=== PATIENT | male | born 1935 | race Caucasian/White ===

== ENCOUNTER 2016-09-10 16:51 | Inpatient (IN) ==
--- NOTE | 2016-09-10 17:25 | Emergency Department Note ---
Disposition Clinical Impression: GI bleed Qualifiers: GI bleed type/associated pathology: unspecified gastrointestinal hemorrhage type Qualified Code(s): K92.2 - Gastrointestinal hemorrhage, unspecified Disposition: Admitted As Inpatient GI Bleed HPI - General Chief complaint: ED GI Bleed Stated complaint: GI BLEED Time Seen by Provider: 09/10/16 17:07 Source: patient, EMS Limitations: age - History of Present Illness HPI Narrative: Mr. Marley, an 81yo male, presents from the [place] via [facility] with CC: GI bleed. He describes overt red blood in the bowl and toilet tissue. Onset 3 days ago and progressively worsening. Stool consistency described as, "apple pie." Painless bowel movements. Had a colonoscopy Aug and has had lower aching abdominal pain since. Denies dizziness, unusual weakness, dyspnea, chest pain, palpitations, numbness/ tingling. Denies history of hemorrhoids. Anticoagulated on ASA, clopidogrel bisulfate. Rate limited by atenolol, digoxin. PMH: TIA, CHF, cardiac pacemaker, CAD, chronic A. Fib, DM II, HTN, hx benign neoplsam of colon. - Related Data Home Medications Medication Instructions Recorded Confirmed Aspirin [Adult Low Dose Aspirin EC] 162 mg PO DAILY 10/30/15 10/30/15 Atenolol [Tenormin] 50 mg PO BID 10/30/15 10/30/15 Atorvastatin [Lipitor] 80 mg PO QPM 10/30/15 10/30/15 Clopidogrel [Plavix] 75 mg PO DAILY 10/30/15 10/30/15 Digoxin [Lanoxin] 0.25 mg PO DAILY 10/30/15 10/30/15 Ergocalciferol (VITAMIN D2) 50,000 unit PO QWEEK 10/30/15 10/30/15 [Vitamin D2 (50,000 UNIT)] Ferrous Sulfate 325 mg PO BID 10/30/15 10/30/15 Furosemide [Lasix] 20 mg PO Q48H 10/30/15 10/30/15 GuaiFENesin Liq [Robitussin Liq] 5 ml PO Q6HR PRN 10/30/15 10/30/15 Insulin NPH Hum/Reg Insulin Hm 74 unit SQ BID 10/30/15 10/30/15 [Novolin 70-30 100 Unit/ml Vial] Isosorbide MONOnitrate (24 HR) 15 mg PO DAILY 10/30/15 10/30/15 [Imdur] Lisinopril [Zestril] 10 mg PO DAILY 10/30/15 10/30/15 Metformin HCl [Glucophage] 1,000 mg PO BID 10/30/15 10/30/15 Metformin [Glucophage] 500 mg PO DAILY 10/30/15 10/30/15 Naproxen [EC-Naprosyn] 375 mg PO BID PRN 10/30/15 10/30/15 Primidone [Mysoline] 100 mg PO HS 10/30/15 10/30/15 Ranitidine HCl [Zantac] 150 mg PO BID 10/30/15 10/30/15 Terazosin HCl 2 mg PO HS 10/30/15 10/30/15 Allergies Allergy/AdvReac Type Severity Reaction Status Date / Time No Known Allergies Allergy Verified 10/30/15 17:26 All systems ED: reviewed and negative except as stated. Constitutional: Denies: fever, chills, weakness Cardiovascular: Denies: chest pain, palpitations, dyspnea on exertion, orthopnea Respiratory: Denies: cough, dyspnea, wheezes Gastrointestinal: Reports: abdominal pain, diarrhea, hematochezia. Denies: nausea, vomiting, constipation, hematemesis, melena Genitourinary: Denies: urgency, dysuria Musculoskeletal: Denies: back pain, neck pain Neurological: Denies: headache, weakness, numbness, paresthesias, confusion, vertigo Hematological/Lymphatic: Reports: easy bleeding, easy bruising Past Medical History - Past Medical History Medical history: Reports: arthritis, atrial fibrillation, cardiomyopathy, CHF, COPD, coronary artery disease, diabetes, GERD, hyperlipidemia, hypertension, myocardial infarction, osteoporosis, renal disease, TIA, other Surgical history: Reports: carotid endarterectomy, pacemaker/AICD, other Psychiatric history: Reports: anxiety - Social History Smoking Status: Former smoker Smokeless Tobacco Status: Yes Alcohol use: Reports: none Drug use: Reports: none Physical Exam General: Patient is alert, oriented, and in no acute distress. HEENT: No facial asymmetry. Head is normocephalic and atraumatic. Trachea midline. Mild conjunctival pallor. Cardiovascular: Heart irregular rate and rhythm without clicks, rubs, gallops, or murmurs. Respiratory: Symmetric chest rise with good respiratory effort. Bilateral breath sounds are clear without wheezing, crackles, or rhonchi. Abdomen: Bowel sounds present normoactive x-4 quadrants. Abdomen is soft, nondistended. Tender in bilateral lower quadrants. : No external rectal evidence of trauma or hemorrhoids. Neuro: Cranial nerves II through XII grossly intact. Psych: Patient's affect is appropriate for situation. - General Limitations: age General appearance: alert, in no apparent distress Course Course Narrative: Labs per [facility]: WBC 6.5 Hgb 10.4 HCT 33.4 BUN 36 Cr 1.18 eGFR >60 PTT 24.6 INR 1.4 AST 21 ALT 21 2v chest: Lt basilar consolidation suspicious for pneumonia, small left pleural effusion. There is overt birhg tred blood in the patient's stool, in the water, and on the toilet tissue in the commode in his ED room. Patient is clinically stable; he is not tachycardic, his BP is hypertensive, he is asymptomatic, his Hb/HCT from the [place] are not immediately concerning. Will CT abd/pelvis with IV no oral. Will not wait on [facility] labs; will use [place] renal fcn for CT. Pertinent labs from [place] above. Patient had another bloody BM. Will repeat CBC and type & screen. 18:45 CT abd/pelvis w/IV no oral contrast indicates diverticulosis without diverticulitis. Evidence of fat stranding with mild gallbladder dilation. Radiologist appropriately recommends rule-out acalculis cholecystitis. Emergencly, will continue to focus on overt bright red blood per rectum. Patient has no RUQ pain on abdominal exam. Spoke with Dr. Gallegos who accepts the patient. Vital Signs Temperature 98.2 F 09/10/16 16:53 Pulse Rate 78 09/10/16 16:53 Respiratory Rate 20 09/10/16 16:53 Blood Pressure 193/126 09/10/16 16:53 O2 Sat by Pulse Oximetry 93 L 09/10/16 16:53 Temperature 98.2 F 09/10/16 16:53 Pulse Rate 77 09/10/16 19:04 Respiratory Rate 20 09/10/16 19:12 Blood Pressure 178/89 09/10/16 19:12 O2 Sat by Pulse Oximetry 95 09/10/16 19:04 Oxygen Delivery Oxygen Delivery Room Air GI Bleed - Medical Records Medical records reviewed: Yes I reviewed the patient's medical records. - Lab Data Lab results reviewed: Yes I reviewed the patient's lab results. - Radiology Data Radiology results reviewed: Yes I reviewed the patient's radiology results. - EKG Data EKG attestation: Yes I reviewed and interpreted this EKG. EKG results narrative: EKD dated 10 Sep 2016 at 17:15 interpreted as A. Fib with rate of 79. IVCD. Non-specific STT changes. Compared to previous dated 10/30/15 showing A. Flutter. Unable to assess ischemic changes in comparison.
--- NOTE | 2016-09-10 19:14 | Emergency Department Note ---
Disposition Clinical Impression: GI bleed Disposition: Admitted As Inpatient General Adult [facility] - General Chief complaint: ED GI Bleed Stated complaint: GI BLEED Time Seen by Provider: 09/10/16 17:07 Source: patient, EMS Limitations: age - History of Present Illness Pain Scale: 0 - Related Data Home Medications Medication Instructions Recorded Confirmed Aspirin [Adult Low Dose Aspirin EC] 162 mg PO DAILY 10/30/15 09/10/16 Atenolol [Tenormin] 50 mg PO BID 10/30/15 09/10/16 Atorvastatin [Lipitor] 80 mg PO QPM 10/30/15 09/10/16 Clopidogrel [Plavix] 75 mg PO DAILY 10/30/15 09/10/16 Digoxin [Lanoxin] 0.25 mg PO DAILY 10/30/15 09/10/16 Furosemide [Lasix] 20 mg PO Q48H 10/30/15 09/10/16 Isosorbide MONOnitrate (24 HR) 15 mg PO DAILY 10/30/15 09/10/16 [Imdur] Lisinopril [Zestril] 10 mg PO DAILY 10/30/15 09/10/16 Metformin [Glucophage] 1,000 mg PO BID 10/30/15 09/10/16 Primidone [Mysoline] 100 mg PO HS 10/30/15 09/10/16 Terazosin HCl 6 mg PO HS 10/30/15 09/10/16 Ferrous Gluconate 324 mg PO BID 09/10/16 09/10/16 Insulin NPH, HUMAN [HumuLIN N] 74 unit SQ BID 09/10/16 09/10/16 Allergies Allergy/AdvReac Type Severity Reaction Status Date / Time No Known Allergies Allergy Verified 10/30/15 17:26 Constitutional: Denies: fever, chills, weakness Cardiovascular: Denies: chest pain, palpitations, dyspnea on exertion, orthopnea Respiratory: Denies: cough, dyspnea, wheezes Gastrointestinal: Reports: abdominal pain, diarrhea, hematochezia. Denies: nausea, vomiting, constipation, hematemesis, melena Genitourinary: Denies: urgency, dysuria Musculoskeletal: Denies: back pain, neck pain Neurological: Denies: headache, weakness, numbness, paresthesias, confusion, vertigo Hematological/Lymphatic: Reports: easy bleeding, easy bruising Past Medical History - Past Medical History Medical history: Reports: arthritis, atrial fibrillation, cardiomyopathy, CHF, COPD, coronary artery disease, diabetes, GERD, hyperlipidemia, hypertension, myocardial infarction, osteoporosis, renal disease, TIA, other Surgical history: Reports: carotid endarterectomy, pacemaker/AICD, other Psychiatric history: Reports: anxiety - Social History Smoking Status: Former smoker Smokeless Tobacco Status: Yes Alcohol use: Reports: none Drug use: Reports: none Physical Exam - General Limitations: age General appearance: alert, in no apparent distress Course - Reevaluation(s) Reevaluation #1: I saw the patient with the resident, Dr. Shepard. Patient presents with close blood per rectum. This was for couple of days. He was sent over from the [place]. He has had several melanotic blood stools right here in the emergency department. Blood pressure is good. Hemoglobin is good (labs drawn at the [facility] with results sent over). CT scan showed some questionable issues around the gallbladder but the patient has no tenderness to palpation around the gallbladder at all. He is to be admitted for this GI bleed. Time: 19:14 Vital Signs Temperature 98.2 F 09/10/16 16:53 Pulse Rate 78 09/10/16 16:53 Respiratory Rate 20 09/10/16 16:53 Blood Pressure 193/126 09/10/16 16:53 O2 Sat by Pulse Oximetry 93 L 09/10/16 16:53 Temperature 98.0 F 09/10/16 19:39 Pulse Rate 79 09/10/16 19:39 Respiratory Rate 15 09/10/16 19:39 Blood Pressure 133/89 09/10/16 19:39 O2 Sat by Pulse Oximetry 97 09/10/16 19:39 Oxygen Delivery Oxygen Delivery Room Air Medical Decision Making - Lab Data Result diagrams: 09/10/16 19:03 09/10/16 19:03 Attestation Statement - Attestation Attestation: I, Dr. Rodriguez, examined this patient [id number] and my medical decision- making was reviewed with Dr. Roque, Resident Physician. I agree with the documented findings, disposition and treatment plan as described except to the extent set forth below. Please see my progress notes for details.
[2016-09-10 19:23] LABS: Hematocrit 30.3 % (37.5-50.1); Hemoglobin 9.6 g/dL (12.9-16.9); Immature Platelets 2.6 % (1.1-6.1); Mean Corpuscular HGB Conc 31.7 g/dL (31.6-35.5); Mean Corpuscular Hemoglobin 29.8 pg (28.0-33.3); Mean Corpuscular Volume 94.1 fL (83.0-100.0); Mean Platelet Volume 9.9 fL (9.4-12.4); Platelet Count 269 K/mcL (140-400); Red Blood Count 3.22 M/mcL (4.19-5.50); Red Cell Distribution Width 16.2 % (11.5-14.5); Segmented Neutrophils % 76.4 %
[2016-09-10 19:24] LABS: Basophils % 0.5 %; Eosinophils # 0.1 K/mcL (0.0-0.6); Eosinophils % 1.7 %; Immature Granulocytes % 0.3 % (0-4); Lymphocytes # 0.6 K/mcL (0.6-4.6); Monocytes # 0.6 K/mcL (0.0-1.3); Monocytes % 10.1 %; Neutrophils # 4.4 K/mcL (1.6-8.9)
[2016-09-10 19:31] LABS: INR 1.7; Prothrombin Time 18.3 Seconds (9.4-12.1)
[2016-09-10 19:36] LABS: BUN/Creatinine Ratio 32 (6-26); Blood Urea Nitrogen 33 mg/dL (8-26); Calcium 9.2 mg/dL (8.6-10.8); Carbon Dioxide 25 mEq/L (19-29); Chloride 104 mEq/L (98-109); Glucose 150 mg/dL (70-99); Osmolality,Calculated 296 (280-300); Potassium 4.5 mEq/L (3.5-4.5); Sodium 138 mEq/L (136-145); eGFR For African Americans > 60 (> 60); eGFR For Non-African Americans > 60 (> 60)
[2016-09-10] MEDS ORDERED: Furosemide 20 MG TABLET PO SCH (20:30)
[2016-09-10] MEDS ORDERED: Acetaminophen 325 MG TABLET PO PRN (22:04)
[2016-09-10] MEDS ORDERED: Naloxone 0.4 MG/ML INJ IVP PRN (22:04)
[2016-09-10] MEDS: Primidone 50 MG TABLET PO SCH (22:32)
[2016-09-10] MEDS ORDERED: D5% in Water 1,000 ML IV PRN (22:35)
[2016-09-10] MEDS ORDERED: Dextrose Gel 15 GM PO PRN ×2 (22:35)
[2016-09-10] MEDS ORDERED: *HR* Dextrose 50 % in Water (Syg) 50 ML SYRINGE IVP PRN (22:35)
--- NOTE | 2016-09-10 23:02 | Internal Med History&Physical ---
<Shivani Mcdermott - Last Filed: 09/11/16 04:58> Date of Encounter: 09/11/16 Time of Encounter: 21:00 Assessment and Plan (1) GI bleed Current visit: Yes Status: Acute Currently on ASA and Plavix Hb&Hct 9.6, 30.3, will compare to previous records Trend Hb q6hr Will consider holding Plavix once stent type and date of placement are confirmed Patient with heart cath x 3 stents at [facility] ([place]), records pending Patient with recent colonoscopy at [facility] ([place]), records pending Qualifiers: GI bleed type/associated pathology: unspecified gastrointestinal hemorrhage type Qualified Code(s): K92.2 - Gastrointestinal hemorrhage, unspecified (2) Elevated troponin Current visit: Yes Status: Acute Previous history UT, CABGx3, Stentsx3, Pacemaker EKG with evidence of atrial futter with interventricular conduction delay, similar to EKG on 10/30/15 Will trend troponins x3 q6hr Continuous quality assurance monitor Repeat EKG in am (3) CHF (congestive heart failure) Current visit: Yes Status: Acute ECHO 10/30/15 with evidence of mild LV systolic dysfunction, EF 40-45% Patient with leg swelling x 1 week BNP 697 Lasix 20mg IV q 24hr Qualifiers: Congestive heart failure type: systolic Congestive heart failure chronicity : acute on chronic Qualified Code(s): I50.23 - Acute on chronic systolic ( congestive) heart failure (4) Diabetes mellitus type 2 in obese Current visit: Yes Status: Acute Sliding scale insulin protocol (5) Urinary incontinence Current visit: Yes Status: Acute UA with reflex Condom catheter Nystatin cream with overlying zinc oxide paste Qualifiers: Urinary Incontinence type: unspecified incontinence Qualified Code(s): R32 - Unspecified urinary incontinence (6) DVT prophylaxis Current visit: Yes Status: Acute Internal Medicine - H&P: HPI Chief complaint: GI bleed Admitted From: Emergency Dept (Sent from [place], [place]) Plans for Post Hospital Care: Home History of present illness: Mr. Marley is a 81 year old male who presents to hospital with 2 day history of rectal bleeding. Denies previous history of this problem. He states that he began noticing large volume bright red blood in the toilet. Bleeding was not painful. Bowel movements were his normal caliber and consistency. Denies diarrhea, constipation, melena. Admits orthopnea, leg swelling x 1 week. Denies headache, dizziness, fever, chills, chest pain, dyspnea, dyspnea on exertion. Past Med Surg Social Fam HX - Past Medical History Medical history: arthritis, atrial fibrillation, cardiomyopathy, CHF, COPD, coronary artery disease, diabetes, GERD, hyperlipidemia, hypertension, myocardial infarction, osteoporosis, renal disease, TIA, other Psychiatric history: anxiety - Past Surgical History Surgical History: carotid endarterectomy, pacemaker/AICD, other - Social History Smoking Status: Former smoker Smokeless Tobacco Status: Yes Alcohol use: none Drug use: none - Family History Mother Age: 96 Living Status: Hx Family Cancer: Yes Father Age: 70 Living Status: Hx Family Cancer: Yes (colon ca) Internal Medicine - H&P: Meds Aspirin [Adult Low Dose Aspirin EC] 162 mg PO DAILY 10/30/15 [History] Atenolol [Tenormin] 50 mg PO BID 10/30/15 [History] Atorvastatin [Lipitor] 80 mg PO QPM 10/30/15 [History] Clopidogrel [Plavix] 75 mg PO DAILY 10/30/15 [History] Digoxin [Lanoxin] 0.25 mg PO DAILY 10/30/15 [History] Furosemide [Lasix] 20 mg PO Q48H 10/30/15 [History] Isosorbide MONOnitrate (24 HR) [Imdur] 15 mg PO DAILY 10/30/15 [History] Lisinopril [Zestril] 10 mg PO DAILY 10/30/15 [History] Metformin [Glucophage] 1,000 mg PO BID 10/30/15 [History] Primidone [Mysoline] 100 mg PO HS 10/30/15 [History] Terazosin HCl 6 mg PO HS 10/30/15 [History] Ferrous Gluconate 324 mg PO BID 09/10/16 [History] Insulin NPH, HUMAN [HumuLIN N] 74 unit SQ BID 09/10/16 [History] Allergies No Known Allergies Allergy (Verified 10/30/15 17:26) All Systems PM: A 10-system review of systems was performed and is negative for pertinent findings except as documented above in the HPI. - Constitutional Vitals: Temp Pulse Resp BP Pulse Ox 98.0 F 79 15 133/89 97 09/10/16 19:39 09/10/16 19:39 09/10/16 19:39 09/10/16 19:39 09/10/16 19:39 General appearance: Present: cooperative, A&O X 3, pleasant, obese, answers questions appropriately - Head Head exam: Present: atraumatic, normal inspection, normocephalic - Neck Neck exam general surgery: Present: full ROM, supple - Respiratory Respiratory exam: Present: CTAB. Absent: rales, respiratory distress, rhonchi, wheezes - Cardiovascular Cardiovascular exam: Present: irregular rhythm, +S1, +S2. Absent: JVD - GI/Abdominal GI/Abdominal exam: Present: normal bowel sounds, soft, tenderness (mild tenderness to palpation epigastric and RUQ). Absent: hepatomegaly, splenomegaly - Extremities Exam Extremities exam: Present: pedal edema (1+ pitting edema lower extremites bilaterally) - Skin Skin exam: Absent: erythema, petechiae Additional comments: no ecchymosis Internal Med - H&P Results - Labs CBC & Chem 7: 09/11/16 01:29 09/11/16 01:29 Labs: Short CBC 09/10/16 Range/Units 19:03 WBC 5.8 (4.3-11.1) K/mcL Hgb 9.6 L (12.9-16.9) g/dL Hct 30.3 L (37.5-50.1) % Plt Count 269 (140-400) K/mcL Neutrophils # 4.4 (1.6-8.9) K/mcL BMP 09/10/16 19:03 Sodium 138 Potassium 4.5 Chloride 104 Carbon Dioxide 25 BUN 33 H Creatinine 1.04 Glucose 150 H Calcium 9.2 Cardiac Enzymes 09/10/16 Range/Units 19:03 Troponin I 0.07 H* (0-0.03) ng/mL - EKG Data -: EKG Interpreted by Myself - EKG Data Prior EKG available for review: yes - Impressions Atrial flutter with intraventricular conduction delay - Attending Attestation I examined this patient and my medical decision-making was reviewed with the MANAGER CAR/PA/Advanced Practice Nurse/Resident Physician. I agree with the documented findings, disposition and treatment plan as described except to the extent set forth below. <Myles Whelan R - Last Filed: 09/12/16 11:40> Date of Encounter: 09/10/16 Internal Medicine - H&P: HPI History of present illness: Mr. Marley is a 81 year old male All Systems PM: A 10-system review of systems was performed and is negative for pertinent findings except as documented above in the HPI. - Constitutional Vitals: Temp Pulse Resp BP Pulse Ox 98.1 F 65 16 155/77 93 L 09/12/16 06:35 09/12/16 06:35 09/12/16 06:35 09/12/16 06:35 09/12/16 06:35 Internal Med - H&P Results - Labs CBC & Chem 7: 09/12/16 04:32 09/12/16 04:32 Labs: Short CBC 09/11/16 09/12/16 Range/Units 16:21 04:32 WBC 5.5 (4.3-11.1) K/mcL Hgb 8.7 L 7.7 L (12.9-16.9) g/dL Hct 28.2 L 24.4 L (37.5-50.1) % Plt Count 222 (140-400) K/mcL Neutrophils # 3.8 (1.6-8.9) K/mcL BMP 09/12/16 04:32 Sodium 140 Potassium 3.8 Chloride 105 Carbon Dioxide 28 BUN 17 D Creatinine 0.93 Glucose 118 H Calcium 8.6 Cardiac Enzymes 09/11/16 Range/Units 13:18 Troponin I 0.05 H* (0-0.03) ng/mL - Attending Attestation I examined this patient and my medical decision-making was reviewed with the MANAGER CAR/PA/Advanced Practice Nurse/Resident Physician. I agree with the documented findings, disposition and treatment plan as described except to the extent set forth below. Reviewed the details and agree with the management plan. H&H Q6H; Type and screen. Hold plavix, if the stent placement was more than 1 2months ago. GI/ surgical consult
[2016-09-11 01:52] LABS: Hematocrit 26.5 % (37.5-50.1); Hemoglobin 8.5 g/dL (12.9-16.9); Mean Corpuscular HGB Conc 32.1 g/dL (31.6-35.5); Mean Corpuscular Hemoglobin 30.5 pg (28.0-33.3); Mean Platelet Volume 10.3 fL (9.4-12.4); Platelet Count 229 K/mcL (140-400); Red Blood Count 2.79 M/mcL (4.19-5.50); Red Cell Distribution Width 16.1 % (11.5-14.5)
[2016-09-11] MEDS: Insulin LISPRO 300 UNITS/3 ML VIAL SQ SCH ×5 (01:56→23:46)
[2016-09-11] MEDS: 0.9 % Sodium Chloride 1,000 ML IVC SCH ×2 (01:57→23:47)
[2016-09-11 02:07] LABS: BUN/Creatinine Ratio 28 (6-26); Blood Urea Nitrogen 29 mg/dL (8-26); Calcium 9.2 mg/dL (8.6-10.8); Carbon Dioxide 27 mEq/L (19-29); Chloride 103 mEq/L (98-109); Glucose 145 mg/dL (70-99); Osmolality,Calculated 296 (280-300); Potassium 4.3 mEq/L (3.5-4.5); Sodium 139 mEq/L (136-145); eGFR For African Americans > 60 (> 60); eGFR For Non-African Americans > 60 (> 60)
[2016-09-11] MEDS ORDERED: *HR* Phytonadione 5 MG TABLET PO ONE (05:00)
[2016-09-11] MEDS: *HR* Digoxin 0.25 MG TABLET PO SCH (08:32)
[2016-09-11] MEDS: Isosorbide MONOnitrate (24 HR) 30 MG TAB.ER.24H PO SCH (08:32)
[2016-09-11] MEDS: Lisinopril 20 MG TABLET PO SCH (08:32)
[2016-09-11] MEDS: Furosemide 20 MG/2 ML VIAL IVP SCH (08:33)
[2016-09-11] MEDS: Nystatin Cream 15 GM TUBE TP SCH ×2 (08:33→20:33)
[2016-09-11] MEDS: Pantoprazole 40 MG VIAL IVP SCH (08:33)
[2016-09-11 10:00] LABS: Hematocrit 30.4 % (37.5-50.1); Hemoglobin 9.4 g/dL (12.9-16.9)
[2016-09-11 10:27] LABS: Bilirubin,Urine Negative (Negative); Blood,Urine Large (Negative); Clarity,Urine Clear (Clear); Color,Urine Yellow (Yellow); Glucose,Urine (UA) Normal (Normal); Ketones,Urine Negative (Negative); Leukocyte Esterase,Urine Small (Negative); Nitrite,Urine Negative (Negative); Protein,Urine Trace mg/dL (Neg-Trace); Specific Gravity,Urine 1.015 (1.010-1.025); Urobilinogen,Urine Normal (Normal)
--- NOTE | 2016-09-11 10:29 | Electrocardiograph Report ---
[facility] Test Date: 2016-09-10 Pat Name: Gustavo Marley Department: 104 Room: [facility] Gender: M [employer] Chief: ED : 1935 Requested By: Barry Roque Order Number: [id number] Reading MD: Jose Velasquez MD Measurements Intervals [place] Rate: 79 P: IN: 0 QRS: 13 QRSD: 113 T: 194 QT: 351 QTc: 385 Interpretive Statements ATRIAL FLUTTER WITH CONTROLLED RESPONSE INFEROLATERAL ISCHEMIA Electronically Signed On 09-11-16 10:28:42 EST by Jose Velasquez MD
[2016-09-11 10:30] LABS: Bacteria,Urine Many per hpf (None-Few); Hyaline Casts,Urine None Seen per lpf (None-Few); Squamous Epithelial Cell,Urine Many per lpf (None-Few)
--- NOTE | 2016-09-11 11:40 | Gastroenterology Consult Note ---
<Duncan Alexis - Last Filed: 09/11/16 11:38> Date of Encounter: 09/11/16 Time of Encounter: 10:35 - Assessment and plan (1) GI bleed Current Visit: Yes Status: Acute Assessment and plan: Likely due to polypectomy during previous colonoscopy. We will plan for colonoscopy tomorrow to evaluate. Clear liquid diet today, no red or purple. NPO at midnight. If unable tolerate NuLytely please use MiraLAX prep. If not clear by 6 AM, give 2 tap water enemas. Qualifiers: GI bleed type/associated pathology: unspecified gastrointestinal hemorrhage type Qualified Code(s): K92.2 - Gastrointestinal hemorrhage, unspecified (2) Acute blood loss anemia Current Visit: Yes Status: Acute Assessment and plan: Continue to monitor CBC and transfuse PRBC as needed. Plan for colonoscopy tomorrow. (3) CHF (congestive heart failure) Current Visit: Yes Status: Acute Qualifiers: Congestive heart failure type: systolic Congestive heart failure chronicity : acute on chronic Qualified Code(s): I50.23 - Acute on chronic systolic ( congestive) heart failure - Time Spent With Patient Total time spent is greater than 50% in coordination of care (as documented) at patient's floor/unit and/or counseling patient: GI History of Present Illness - Data of Consult Patient: new to practice Consult date: 09/11/16 Requesting Physician: Ramon Lea - Consult Narrative Reason for consult: GI bleeding History of present illness: Mr. Marley is a 81 year old male with PMHx of Afib, cardiomyopathy, CHF, COPD, CAD, pacemaker/AICD, DM, GERD, HLD, HTN, FL, renal disease, and TIA who presented with 2-3 day history of rectal bleeding. He reports a large volume of bright red blood in the toilet. Denies abdominal pain, nausea, vomiting, diarrhea, or constipation. He reports having daily BM with no melena. He had colonoscopy on 08/28/16, and records have been requested. Procedures: Colonoscopy 08/28/2016 at [facility] with "quarter-sized polyp" removed-per patient. NSAIDs: ASA Anticoagulation: Plavix Past Med Surg Social Fam HX - Past Medical History Medical history: arthritis, atrial fibrillation, cardiomyopathy, CHF, COPD, coronary artery disease, diabetes, GERD, hyperlipidemia, hypertension, myocardial infarction, osteoporosis, renal disease, TIA, other Psychiatric history: anxiety - Past Surgical History Surgical History: carotid endarterectomy, pacemaker/AICD, other - Social History Smoking Status: Former smoker Smokeless Tobacco Status: Yes Alcohol use: none Drug use: none - Family History Mother Age: 96 Living Status: Hx Family Cancer: Yes Father Age: 70 Living Status: Hx Family Cancer: Yes (colon ca) - Gastrointestinal Gastrointestinal: Present: as per HPI - Constitutional Constitutional: as per HPI - EENT Eyes: as per HPI Ears: Present: as per HPI Nose, mouth and throat: Present: as per HPI - Cardiovascular Cardiovascular ROS: Present: as per HPI - Respiratory Respiratory IM: Present: as per HPI - Genitourinary Genitourinary: Absent: change in color, Urinary frequency - Neurological ROS Neurological GI: Present: as per HPI - Hematologic/Lymphatic Hematologic/Lymphatic pediatric: Present: as per HPI - Musculoskeletal Musculoskeletal ROS GI: Present: as per HPI - Integumentary Integumentary GI: Present: as per HPI - Psychiatric ROS Psychiatric GI: Present: as per HPI - Endocrine Endocrine IM: Present: as per HPI - Constitutional Vitals: Temp Pulse Resp BP Pulse Ox 97.5 F L 65 18 152/82 96 09/11/16 06:54 09/11/16 06:54 09/11/16 06:54 09/11/16 06:54 09/11/16 06:54 General appearance: Present: cooperative, A&O X 3, no acute distress, answers questions appropriately - Head Head exam: Present: atraumatic, normocephalic - Eye Eye exam: Present: normal appearance, sclera anicteric - ENT ENT exam: Present: mucous membranes dry - Neck Neck exam general surgery: Present: normal inspection, trachea midline - Respiratory Respiratory exam: Present: CTAB. Absent: rales, rhonchi - Cardiovascular Cardiovascular exam: Present: RRR, +S1, +S2 - GI/Abdominal GI/Abdominal exam: Present: soft, no peritoneal signs. Absent: distended, firm , guarding, tenderness - Rectal Rectal exam: Present: deferred - Extremities Exam Extremities exam: Present: warm - Neurological Exam Neurological exam: Present: no focal deficits - Psychiatric Psychiatric exam: Present: normal affect, normal mood - Skin Skin exam: Present: dry, intact, normal color, warm Results - Labs CBC & Chem 7: 09/11/16 09:52 09/11/16 01:29 Labs: Last Result Calcium 9.2 mg/dL (8.6-10.8) 09/11/16 01:29 Troponin I 0.08 ng/mL (0-0.03) H* 09/11/16 06:21 Entire Visit Hgb 9.4 g/dL (12.9-16.9) L 09/11/16 09:52 Hct 30.4 % (37.5-50.1) L 09/11/16 09:52 PT 18.3 Seconds (9.4-12.1) H 09/10/16 19:03 - ABG ABG results: PT/INR, D-dimer PT 18.3 Seconds (9.4-12.1) H 09/10/16 19:03 Consult Discharge Plan - Plan [facility]errals: [facility] [Primary Care Provider] - <Kris Nuñez - Last Filed: 09/11/16 17:54> Date of Encounter: 09/11/16 Time of Encounter: 14:00 - Time Spent With Patient Total time spent is greater than 50% in coordination of care (as documented) at patient's floor/unit and/or counseling patient: GI History of Present Illness - Data of Consult Requesting Physician: Ramon Lea - Consult Narrative History of present illness: Mr. Marley is a 81 year old male - Constitutional Vitals: Temp Pulse Resp BP Pulse Ox 97.7 F 60 18 132/69 94 L 09/11/16 15:40 09/11/16 15:40 09/11/16 15:40 09/11/16 15:40 09/11/16 15:40 Results - Labs CBC & Chem 7: 09/11/16 16:21 09/11/16 01:29 Labs: Last Result Calcium 9.2 mg/dL (8.6-10.8) 09/11/16 01:29 Troponin I 0.05 ng/mL (0-0.03) H* 09/11/16 13:18 Entire Visit Hgb 8.7 g/dL (12.9-16.9) L 09/11/16 16:21 Hct 28.2 % (37.5-50.1) L 09/11/16 16:21 PT 18.3 Seconds (9.4-12.1) H 09/10/16 19:03 - ABG ABG results: PT/INR, D-dimer PT 18.3 Seconds (9.4-12.1) H 09/10/16 19:03 - Attending Attestation I examined this patient and my medical decision-making was reviewed with the BACTERIOLOGY TECHNICIAN/PA/Advanced Practice Nurse/Resident Physician. I agree with the documented findings, disposition and treatment plan as described except to the extent set forth below.
[2016-09-11 16:32] LABS: Hematocrit 28.2 % (37.5-50.1); Hemoglobin 8.7 g/dL (12.9-16.9)
--- NOTE | 2016-09-11 16:37 | Internal Med Progress Note ---
Date of Encounter: 09/11/16 Time of Encounter: 16:35 - Assessment and plan (1) GI bleed Current Visit: Yes Status: Acute Assessment and plan: s/p polypectomy, will continue monitoring hemoglobin and follow GI input. For colonoscopy tomorrow. colon prep today. Qualifiers: GI bleed type/associated pathology: unspecified gastrointestinal hemorrhage type Qualified Code(s): K92.2 - Gastrointestinal hemorrhage, unspecified (2) DVT prophylaxis Current Visit: Yes Status: Acute Assessment and plan: no heparin in light of gi bleeding. (3) Elevated troponin Current Visit: Yes Status: Acute Assessment and plan: no chest pain, likely due to bleeding and anemia. (4) CHF (congestive heart failure) Current Visit: Yes Status: Acute Assessment and plan: stable. Qualifiers: Congestive heart failure type: systolic Congestive heart failure chronicity : acute on chronic Qualified Code(s): I50.23 - Acute on chronic systolic ( congestive) heart failure - Time Spent With Patient 25 - 35 minutes - Subjective Interval history: first encounter with the patient,denies abdominal pain. - Constitutional Vitals: Temp Pulse Resp BP Pulse Ox 97.7 F 60 18 132/69 94 L 09/11/16 15:40 09/11/16 15:40 09/11/16 15:40 09/11/16 15:40 09/11/16 15:40 General appearance: Present: cooperative, A&O X 3, pleasant, obese, answers questions appropriately - Head Head exam: Present: atraumatic, normocephalic - Eye Eye exam: Present: PERRL, conjuntiva pink, sclera anicteric Pupils: Present: PERRL - Neck Neck exam general surgery: Present: supple, trachea midline. Absent: lymphadenopathy - Respiratory Respiratory exam: Present: CTAB. Absent: accessory muscle use, rales, rhonchi, wheezes - Cardiovascular Cardiovascular exam: Present: RRR, +S1, +S2. Absent: diastolic murmur, gallop, rubs, systolic murmur - GI/Abdominal GI/Abdominal exam: Present: normal bowel sounds, soft, no peritoneal signs. Absent: distended, tenderness - Extremities Exam Extremities exam: Present: warm, radial pulses palpable and symetrical. Absent : calf tenderness, cyanotic, pedal edema - Neurological Exam Neurological exam: Present: CN II-XII intact, oriented X3, no focal deficits. Absent: pronater drift, facial droop, speech deficit - Skin Skin exam: Present: dry, intact Internal Medicine: Result - Labs CBC & Chem 7: 09/11/16 16:21 09/11/16 01:29 Labs: Short CBC 09/11/16 Range/Units 16:21 Hgb 8.7 L (12.9-16.9) g/dL Hct 28.2 L (37.5-50.1) % Cardiac Enzymes 09/11/16 Range/Units 13:18 Troponin I 0.05 H* (0-0.03) ng/mL - ABG Interpretation ABG results: PT/INR, D-dimer PT 18.3 Seconds (9.4-12.1) H 09/10/16 19:03 - VTE Documentation of Mechanical Device: Intermittent pneumatic compression device Consult Discharge Plan - Plan [facility]errals: [facility] [Primary Care Provider] -
[2016-09-11] MEDS ORDERED: SODIUM CHLORIDE/NAHCO3/KCL/PEG 4,000 ML SOLN.RECON PO ONE (17:00)
[2016-09-11] MEDS: Primidone 50 MG TABLET PO SCH (20:33)
[2016-09-12 04:46] LABS: Basophils % 0.5 %; Eosinophils # 0.2 K/mcL (0.0-0.6); Eosinophils % 2.9 %; Hematocrit 24.4 % (37.5-50.1); Hemoglobin 7.7 g/dL (12.9-16.9); Immature Granulocytes % 0.9 % (0-4); Lymphocytes # 0.9 K/mcL (0.6-4.6); Lymphocytes % 16.5 %; Mean Corpuscular HGB Conc 31.6 g/dL (31.6-35.5); Mean Corpuscular Hemoglobin 29.5 pg (28.0-33.3); Mean Corpuscular Volume 93.5 fL (83.0-100.0); Mean Platelet Volume 9.8 fL (9.4-12.4); Monocytes # 0.6 K/mcL (0.0-1.3); Monocytes % 10.4 %; Neutrophils # 3.8 K/mcL (1.6-8.9); Platelet Count 222 K/mcL (140-400); Red Blood Count 2.61 M/mcL (4.19-5.50); Red Cell Distribution Width 16.3 % (11.5-14.5); Segmented Neutrophils % 68.8 %
[2016-09-12 05:00] LABS: BUN/Creatinine Ratio 18 (6-26); Blood Urea Nitrogen 17 mg/dL (8-26); Calcium 8.6 mg/dL (8.6-10.8); Carbon Dioxide 28 mEq/L (19-29); Chloride 105 mEq/L (98-109); Glucose 118 mg/dL (70-99); Osmolality,Calculated 293 (280-300); Potassium 3.8 mEq/L (3.5-4.5); Sodium 140 mEq/L (136-145); eGFR For African Americans > 60 (> 60); eGFR For Non-African Americans > 60 (> 60)
[2016-09-12] MEDS: Insulin LISPRO 300 UNITS/3 ML VIAL SQ SCH ×3 (05:27→18:24)
[2016-09-12] MEDS: Lisinopril 20 MG TABLET PO SCH (09:44)
[2016-09-12] MEDS: *HR* Digoxin 0.25 MG TABLET PO SCH (09:44)
[2016-09-12] MEDS: Isosorbide MONOnitrate (24 HR) 30 MG TAB.ER.24H PO SCH (09:44)
[2016-09-12] MEDS: Furosemide 20 MG/2 ML VIAL IVP SCH (09:44)
[2016-09-12] MEDS: Pantoprazole 40 MG VIAL IVP SCH (09:44)
[2016-09-12] MEDS: Nystatin Cream 15 GM TUBE TP SCH ×2 (09:48→21:30)
--- NOTE | 2016-09-12 13:18 | Anesthesia Evaluation PreOp ---
Date of Encounter: 09/12/16 Time of Encounter: 13:16 - Past History Planned Operation: cscope/admit rectal bleeding Cardiac History: CHF, Hyperlipidemia, Arrhythmia (af), Cardiac Surgery (3vcabg) , Cardiac Stent (stentx3), Pacemaker/ICD (PM, 2 years ago, never interrogated per daughter, pt's vss however acute anemia with no renal dysfct. we need to proceed to eval for hemostasis.), Other (echo 10/31: ef 40, mod lvh, mild rv hypokinesis, severely dilated l atrium, mild-mo ms, mod pulm htn, rvsp 57) Pulmonary History: Denies Any Significant HX SVP OPERATIONS History: TIA (pt denies any hx) Other Medical History: Renal, Diabetes Type II Anesthesia History: No Prior Anesthetic Complications, Past Anesthesia (cea, pm , cabg, stents) Alcohol Use: none Drug use: none Medications and Allergies Aspirin [Adult Low Dose Aspirin EC] 162 mg PO DAILY 10/30/15 [History] Atenolol [Tenormin] 50 mg PO BID 10/30/15 [History] Atorvastatin [Lipitor] 80 mg PO QPM 10/30/15 [History] Clopidogrel [Plavix] 75 mg PO DAILY 10/30/15 [History] Digoxin [Lanoxin] 0.25 mg PO DAILY 10/30/15 [History] Furosemide [Lasix] 20 mg PO Q48H 10/30/15 [History] Isosorbide MONOnitrate (24 HR) [Imdur] 15 mg PO DAILY 10/30/15 [History] Lisinopril [Zestril] 10 mg PO DAILY 10/30/15 [History] Metformin [Glucophage] 1,000 mg PO BID 10/30/15 [History] Primidone [Mysoline] 100 mg PO HS 10/30/15 [History] Terazosin HCl 6 mg PO HS 10/30/15 [History] Ferrous Gluconate 324 mg PO BID 09/10/16 [History] Insulin NPH, HUMAN [HumuLIN N] 74 unit SQ BID 09/10/16 [History] Allergies No Known Allergies Allergy (Verified 10/30/15 17:26) - Meds/Allergy Pre-op Review Medications Reviewed: Yes Allergies Reviewed: Yes Beta Blockers on Current Med List: No Anesthesia Results - Labs 09/12/16 04:32 09/12/16 04:32 Laboratory Tests 09/10/16 19:03 PT 18.3 H INR 1.7 - Imaging EKG: report reviewed (atrial flutter with inf/lat ischemia (similar to 10/31)) Anesthesia Exam Vital Signs/O2 Sat/Glucose, Most Current Temp Pulse Resp BP Pulse Ox 09/12/16 11:26 97.5 F L 65 16 155/74 93 L Blood glucose: 151 (at 1130) Height: 1.8 Weight: 104 NPO (# of Hours): >8 - HEENT Pupil (Motor): Pupils equal, EOMI Mallampati: II Teeth: Poor dentition Oral Opening: Greater than 3 - SVP OPERATIONS LOC: Oriented SVP OPERATIONS Motor: Normal RUE, Normal LUE, Normal RLE, Normal LLE, Normal Face SVP OPERATIONS Sensory: Normal: RUE, LUE, RLE, LLE, Face - Cardiac Rhythm: Regular Murmur: Systolic (3/6) - Pulmonary Breath Sounds: bilateral Clear Respiratory Effort: Symmetrical Anesthesia Assess/Plan ASA Score: 4 Modified [place] Scale for Level of Consciousness: Cooperative, oriented, and tranquil Anesthetic Plan: MAC Monitoring Plan: Standard Monitors Recovery Plan: Other
[2016-09-12] MEDS ORDERED: *HR* EPINEPHrine 1 MG/10 ML SYRINGE IVP PRN (14:06)
[2016-09-12] MEDS ORDERED: Ondansetron 4 MG/2 ML VIAL IVP PRN (14:45)
[2016-09-12] MEDS ORDERED: Furosemide 20 MG/2 ML VIAL IVP ONE (15:08)
--- NOTE | 2016-09-12 15:55 | Internal Med Progress Note ---
Date of Encounter: 09/12/16 Time of Encounter: 15:53 - Assessment and plan (1) GI bleed Current Visit: Yes Status: Acute Assessment and plan: s/p polypectomy prior to admission and on plavix. will continue monitoring hemoglobin. colonoscpy repotr noted, active bleeding according to report. will continue monitoring hb. Continue with iv lasix. Qualifiers: GI bleed type/associated pathology: unspecified gastrointestinal hemorrhage type Qualified Code(s): K92.2 - Gastrointestinal hemorrhage, unspecified (2) DVT prophylaxis Current Visit: Yes Status: Acute (3) Elevated troponin Current Visit: Yes Status: Acute (4) CHF (congestive heart failure) Current Visit: Yes Status: Acute Qualifiers: Congestive heart failure type: systolic Congestive heart failure chronicity : acute on chronic Qualified Code(s): I50.23 - Acute on chronic systolic ( congestive) heart failure - Time Spent With Patient 25 - 35 minutes - Subjective Interval history: S/P colonocopy, denies abdominal pain. - Constitutional Vitals: Temp Pulse Resp BP Pulse Ox 97.7 F 63 16 156/83 98 09/12/16 14:41 09/12/16 14:41 09/12/16 14:41 09/12/16 14:41 09/12/16 14:41 General appearance: Present: cooperative, A&O X 3, pleasant, obese, answers questions appropriately - Head Head exam: Present: atraumatic, normocephalic - Eye Eye exam: Present: PERRL, conjuntiva pink, sclera anicteric Pupils: Present: PERRL - Neck Neck exam general surgery: Present: supple, trachea midline. Absent: lymphadenopathy - Respiratory Respiratory exam: Present: decreased breath sounds. Absent: accessory muscle use, rales, rhonchi, wheezes - Cardiovascular Cardiovascular exam: Present: RRR, +S1, +S2. Absent: diastolic murmur, gallop, rubs, systolic murmur - GI/Abdominal GI/Abdominal exam: Present: normal bowel sounds, soft, no peritoneal signs. Absent: distended, tenderness - Extremities Exam Extremities exam: Present: warm, radial pulses palpable and symetrical. Absent : calf tenderness, cyanotic, pedal edema Additional comments: edema +/+++ - Neurological Exam Neurological exam: Present: CN II-XII intact, oriented X3, no focal deficits. Absent: pronater drift, facial droop, speech deficit - Skin Skin exam: Present: dry, intact Internal Medicine: Result - Labs CBC & Chem 7: 09/12/16 04:32 09/12/16 04:32 Labs: Short CBC 09/11/16 09/12/16 Range/Units 16:21 04:32 WBC 5.5 (4.3-11.1) K/mcL Hgb 8.7 L 7.7 L (12.9-16.9) g/dL Hct 28.2 L 24.4 L (37.5-50.1) % Plt Count 222 (140-400) K/mcL Neutrophils # 3.8 (1.6-8.9) K/mcL BMP 09/12/16 04:32 Sodium 140 Potassium 3.8 Chloride 105 Carbon Dioxide 28 BUN 17 D Creatinine 0.93 Glucose 118 H Calcium 8.6 - ABG Interpretation ABG results: PT/INR, D-dimer PT 18.3 Seconds (9.4-12.1) H 09/10/16 19:03 - Impressions Impressions Chest X-Ray 09/12/16 15:03 IMPRESSION: Cardiomegaly with left pleural effusion and increasing left basilar atelectasis. D/ / 09/12/2016 15:33:04 Juan David Navarrete MD / juan jose Interpreting Provider: Juan David Navarrete MD - VTE Documentation of Mechanical Device: Intermittent pneumatic compression device Consult Discharge Plan - Plan Referrals: [facility] [Primary Care Provider] -
[2016-09-12] MEDS: Primidone 50 MG TABLET PO SCH (21:29)
[2016-09-13] MEDS: Insulin LISPRO 300 UNITS/3 ML VIAL SQ SCH ×4 (01:08→17:13)
[2016-09-13 04:23] LABS: BUN/Creatinine Ratio 12 (6-26); Blood Urea Nitrogen 15 mg/dL (8-26); Calcium 8.7 mg/dL (8.6-10.8); Carbon Dioxide 28 mEq/L (19-29); Chloride 105 mEq/L (98-109); Glucose 130 mg/dL (70-99); Osmolality,Calculated 293 (280-300); Potassium 3.7 mEq/L (3.5-4.5); Sodium 140 mEq/L (136-145); eGFR For African Americans > 60 (> 60); eGFR For Non-African Americans 57 (> 60)
[2016-09-13 04:24] LABS: Basophils % 0.4 %; Eosinophils # 0.1 K/mcL (0.0-0.6); Eosinophils % 1.2 %; Hematocrit 23.9 % (37.5-50.1); Hemoglobin 7.5 g/dL (12.9-16.9); Immature Granulocytes % 0.2 % (0-4); Lymphocytes # 0.9 K/mcL (0.6-4.6); Lymphocytes % 16.6 %; Mean Corpuscular HGB Conc 31.4 g/dL (31.6-35.5); Mean Corpuscular Volume 95.6 fL (83.0-100.0); Mean Platelet Volume 9.9 fL (9.4-12.4); Monocytes # 0.6 K/mcL (0.0-1.3); Monocytes % 10.8 %; Neutrophils # 3.6 K/mcL (1.6-8.9); Platelet Count 212 K/mcL (140-400); Red Cell Distribution Width 16.1 % (11.5-14.5); Segmented Neutrophils % 70.8 %
[2016-09-13] MEDS: Pantoprazole 40 MG VIAL IVP SCH (08:17)
--- NOTE | 2016-09-13 09:10 | Gastroenterology Progress Note ---
<Duncan Alexis - Last Filed: 09/13/16 10:48> Date of Encounter: 09/13/16 Time of Encounter: 10:00 - Assessment and plan (1) GI bleed Current Visit: Yes Status: Acute Assessment and plan: Colonoscopy revealed active bleeding in the ascending colon at previous polypectomy site. 3 clips were placed and hemostasis achieved. Recommend holding Plavix for one week. Qualifiers: GI bleed type/associated pathology: unspecified gastrointestinal hemorrhage type Qualified Code(s): K92.2 - Gastrointestinal hemorrhage, unspecified (2) Acute blood loss anemia Current Visit: Yes Status: Acute Assessment and plan: Continue to monitor CBC and transfuse PRBC as needed. Hgb 7.5, recommend transfusion of PRBCs prior to discharge. (3) Internal hemorrhoids Current Visit: Yes Status: Acute Assessment and plan: Noted on colonoscopy, recommend daily fiber supplement. - Time Spent With Patient Total time spent is greater than 50% in coordination of care (as documented) at patient's floor/unit and/or counseling patient: - Subjective Interval history: Pt reports feeling better and asks multiple times to be discharged. He denies any further BRBPR. - Constitutional Vitals: Temp Pulse Resp BP Pulse Ox 98.9 F 63 16 113/62 98 09/13/16 07:19 09/13/16 07:19 09/13/16 07:19 09/13/16 07:19 09/13/16 07:19 General appearance: Present: cooperative, A&O X 3, no acute distress, answers questions appropriately - Head Head exam: Present: atraumatic, normocephalic - Eye Eye exam: Present: normal appearance, sclera anicteric - ENT ENT exam: Present: mucous membranes moist - Neck Neck exam general surgery: Present: normal inspection, trachea midline - Respiratory Respiratory exam: Present: decreased breath sounds, CTAB. Absent: rales, rhonchi - Cardiovascular Cardiovascular exam: Present: RRR, +S1, +S2 - GI/Abdominal GI/Abdominal exam: Present: soft, no peritoneal signs. Absent: distended, firm , guarding, tenderness - Rectal Rectal exam: Present: deferred - Extremities Exam Extremities exam: Present: warm - Neurological Exam Neurological exam: Present: no focal deficits - Psychiatric Psychiatric exam: Present: normal affect, normal mood - Skin Skin exam: Present: dry, intact, normal color, warm Results - Labs CBC & Chem 7: 09/13/16 03:58 09/13/16 03:58 Labs: Last Result Calcium 8.7 mg/dL (8.6-10.8) 09/13/16 03:58 Troponin I 0.05 ng/mL (0-0.03) H* 09/11/16 13:18 Entire Visit Hgb 7.5 g/dL (12.9-16.9) L 09/13/16 03:58 Hct 23.9 % (37.5-50.1) L 09/13/16 03:58 PT 18.3 Seconds (9.4-12.1) H 09/10/16 19:03 - ABG ABG results: PT/INR, D-dimer PT 18.3 Seconds (9.4-12.1) H 09/10/16 19:03 - Impressions Impressions Chest X-Ray 09/12/16 15:03 IMPRESSION: Cardiomegaly with left pleural effusion and increasing left basilar atelectasis. D/ / 09/12/2016 15:33:04 Juan David Navarrete MD / juan jose Interpreting Provider: Juan David Navarrete MD - VTE Documentation of Mechanical Device: Intermittent pneumatic compression device Consult Discharge Plan - Plan Referrals: [facility] [Primary Care Provider] - <Kris Nuñez - Last Filed: 09/13/16 11:54> Time of Encounter: 11:20 - Time Spent With Patient Total time spent is greater than 50% in coordination of care (as documented) at patient's floor/unit and/or counseling patient: - Constitutional Vitals: Temp Pulse Resp BP Pulse Ox 97.7 F 64 18 113/59 98 09/13/16 10:50 09/13/16 10:50 09/13/16 10:50 09/13/16 10:50 09/13/16 10:50 Results - Labs CBC & Chem 7: 09/13/16 03:58 09/13/16 03:58 Labs: Last Result Calcium 8.7 mg/dL (8.6-10.8) 09/13/16 03:58 Troponin I 0.05 ng/mL (0-0.03) H* 09/11/16 13:18 Entire Visit Hgb 7.5 g/dL (12.9-16.9) L 09/13/16 03:58 Hct 23.9 % (37.5-50.1) L 09/13/16 03:58 PT 18.3 Seconds (9.4-12.1) H 09/10/16 19:03 - ABG ABG results: PT/INR, D-dimer PT 18.3 Seconds (9.4-12.1) H 09/10/16 19:03 - Impressions Impressions Chest X-Ray 09/12/16 15:03 IMPRESSION: Cardiomegaly with left pleural effusion and increasing left basilar atelectasis. D/ / 09/12/2016 15:33:04 Juan David Navarrete MD / juan jose Interpreting Provider: Juan David Navarrete MD - Attending Attestation I examined this patient and my medical decision-making was reviewed with the SLAG SKIMMER/PA/Advanced Practice Nurse/Resident Physician. I agree with the documented findings, disposition and treatment plan as described except to the extent set forth below.
[2016-09-13] MEDS: Lisinopril 20 MG TABLET PO SCH (10:04)
[2016-09-13] MEDS: *HR* Digoxin 0.25 MG TABLET PO SCH (10:04)
[2016-09-13] MEDS: Nystatin Cream 15 GM TUBE TP SCH ×2 (10:05→22:01)
[2016-09-13] MEDS: Furosemide 20 MG/2 ML VIAL IVP SCH (10:05)
[2016-09-13] MEDS: Isosorbide MONOnitrate (24 HR) 30 MG TAB.ER.24H PO SCH (10:07)
[2016-09-13] MEDS ORDERED: Furosemide 20 MG/2 ML VIAL IVP ONE (11:41)
[2016-09-13] MEDS ORDERED: 0.9 % Sodium Chloride 500 ML ONE (12:56)
[2016-09-13] MEDS ORDERED: D5% in Water 1,000 ML IV PRN (14:20)
[2016-09-13] MEDS ORDERED: Dextrose Gel 15 GM PO PRN ×2 (14:20)
[2016-09-13] MEDS ORDERED: *HR* Dextrose 50 % in Water (Syg) 50 ML SYRINGE IVP PRN (14:20)
--- NOTE | 2016-09-13 15:07 | Internal Med Progress Note ---
Date of Encounter: 09/13/16 Time of Encounter: 15:04 - Assessment and plan (1) GI bleed Current Visit: Yes Status: Acute Assessment and plan: s/p polypectomy prior to admission and on plavix. hb dropping consistently, raya transfuse 2 units of pr bc today and recheck hb tomorrow in am. will give lasix in bet units. will continue monitoring hemoglobin. colonoscopy repotr noted, active bleeding according to report which was taken care of. will continue monitoring hb. Continue with iv lasix. No plavix for 1 week. Patient was evaluated by PT, recommend SNF. Qualifiers: GI bleed type/associated pathology: unspecified gastrointestinal hemorrhage type Qualified Code(s): K92.2 - Gastrointestinal hemorrhage, unspecified (2) DVT prophylaxis Current Visit: Yes Status: Acute (3) Elevated troponin Current Visit: Yes Status: Acute (4) CHF (congestive heart failure) Current Visit: Yes Status: Acute Qualifiers: Congestive heart failure type: systolic Congestive heart failure chronicity : acute on chronic Qualified Code(s): I50.23 - Acute on chronic systolic ( congestive) heart failure - Time Spent With Patient 25 - 35 minutes - Subjective Interval history: S/P colonocopy, denies abdominal pain. eating without distress. no more bleeding , - Constitutional Vitals: Temp Pulse Resp BP Pulse Ox 97.7 F 64 18 113/59 98 09/13/16 10:50 09/13/16 10:50 09/13/16 10:50 09/13/16 10:50 09/13/16 10:50 General appearance: Present: cooperative, A&O X 3, pleasant, obese, answers questions appropriately - Head Head exam: Present: atraumatic, normocephalic - Eye Eye exam: Present: PERRL, conjuntiva pink, sclera anicteric Pupils: Present: PERRL - Neck Neck exam general surgery: Present: supple, trachea midline. Absent: lymphadenopathy - Respiratory Respiratory exam: Present: CTAB. Absent: accessory muscle use, rales, rhonchi, wheezes - Cardiovascular Cardiovascular exam: Present: RRR, +S1, +S2. Absent: diastolic murmur, gallop, rubs, systolic murmur - GI/Abdominal GI/Abdominal exam: Present: normal bowel sounds, soft, no peritoneal signs. Absent: distended, tenderness - Extremities Exam Extremities exam: Present: warm, radial pulses palpable and symetrical. Absent : calf tenderness, cyanotic, pedal edema - Neurological Exam Neurological exam: Present: CN II-XII intact, oriented X3, no focal deficits. Absent: pronater drift, facial droop, speech deficit - Skin Skin exam: Present: dry, intact Internal Medicine: Result - Labs CBC & Chem 7: 09/13/16 03:58 09/13/16 03:58 Labs: Short CBC 09/13/16 Range/Units 03:58 WBC 5.1 (4.3-11.1) K/mcL Hgb 7.5 L (12.9-16.9) g/dL Hct 23.9 L (37.5-50.1) % Plt Count 212 (140-400) K/mcL Neutrophils # 3.6 (1.6-8.9) K/mcL BMP 09/13/16 03:58 Sodium 140 Potassium 3.7 Chloride 105 Carbon Dioxide 28 BUN 15 Creatinine 1.21 Glucose 130 H Calcium 8.7 - ABG Interpretation ABG results: PT/INR, D-dimer PT 18.3 Seconds (9.4-12.1) H 09/10/16 19:03 - Impressions Impressions Chest X-Ray 09/12/16 15:03 IMPRESSION: Cardiomegaly with left pleural effusion and increasing left basilar atelectasis. D/ / 09/12/2016 15:33:04 Juan David Navarrete MD / juan jose Interpreting Provider: Juan David Navarrete MD - VTE Documentation of Mechanical Device: Intermittent pneumatic compression device Consult Discharge Plan - Plan Referrals: [facility] [Primary Care Provider] -
--- NOTE | 2016-09-13 16:21 | Electrocardiograph Report ---
[facility] Test Date: 2016-09-13 Pat Name: ASHLEY NICOLE Department: 114 Room: [facility] Gender: M Superintendent Service: RACHAEL : 1935 Requested By: Ramon Lea Order Number: [id number] Reading MD: Argentina Bae Measurements Intervals [place] Rate: 60 P: OK: 0 QRS: -62 QRSD: 200 T: 115 QT: 483 QTc: 484 Interpretive Statements ELECTRONIC VENTRICULAR PACEMAKER ABNORMAL RHYTHM ECG Electronically Signed On 09-13-16 16:18:07 EST by Argentina Bae
[2016-09-13] MEDS ORDERED: 0.9 % Sodium Chloride 250 ML ONE (16:43)
[2016-09-13] MEDS ORDERED: Insulin DETEMIR 100 UNIT/ML X5UNITS SQ SCH (21:00)
[2016-09-13] MEDS: Primidone 50 MG TABLET PO SCH (22:00)
[2016-09-14 06:06] LABS: Basophils % 0.5 %; Eosinophils # 0.1 K/mcL (0.0-0.6); Hematocrit 29.1 % (37.5-50.1); Immature Granulocytes % 0.2 % (0-4); Lymphocytes # 0.9 K/mcL (0.6-4.6); Lymphocytes % 14.7 %; Mean Corpuscular HGB Conc 31.6 g/dL (31.6-35.5); Mean Corpuscular Hemoglobin 29.5 pg (28.0-33.3); Mean Corpuscular Volume 93.3 fL (83.0-100.0); Mean Platelet Volume 10.4 fL (9.4-12.4); Monocytes # 0.6 K/mcL (0.0-1.3); Monocytes % 10.8 %; Neutrophils # 4.2 K/mcL (1.6-8.9); Platelet Count 229 K/mcL (140-400); Red Blood Count 3.12 M/mcL (4.19-5.50); Red Cell Distribution Width 18.2 % (11.5-14.5); Segmented Neutrophils % 71.8 %
[2016-09-14 06:20] LABS: Calcium 8.6 mg/dL (8.6-10.8); Potassium 3.8 mEq/L (3.5-4.5)
[2016-09-14 06:34] LABS: Hemoglobin 9.2 g/dL (12.9-16.9)
[2016-09-14] MEDS: Insulin LISPRO 300 UNITS/3 ML VIAL SQ SCH ×2 (08:09→12:24)
[2016-09-14] MEDS: Furosemide 20 MG/2 ML VIAL IVP SCH (08:09)
[2016-09-14] MEDS: Isosorbide MONOnitrate (24 HR) 30 MG TAB.ER.24H PO SCH (08:10)
[2016-09-14] MEDS: *HR* Digoxin 0.25 MG TABLET PO SCH (08:10)
[2016-09-14] MEDS: Nystatin Cream 15 GM TUBE TP SCH (08:10)
[2016-09-14] MEDS: Lisinopril 20 MG TABLET PO SCH (08:10)
[2016-09-14] MEDS: Pantoprazole 40 MG VIAL IVP SCH (08:10)
[2016-09-14 11:23] VITALS: BP 148/73
--- NOTE | 2016-09-14 12:40 | Discharge Summary ---
Date of Encounter: 09/14/16 Time of Encounter: 12:38 - Discharge Diagnosis (1) GI bleed Priority: Primary Status: Acute Qualifiers: GI bleed type/associated pathology: unspecified gastrointestinal hemorrhage type Qualified Code(s): K92.2 - Gastrointestinal hemorrhage, unspecified (2) DVT prophylaxis Priority: Secondary Status: Acute (3) Elevated troponin Priority: Secondary Status: Acute (4) CHF (congestive heart failure) Priority: Secondary Status: Acute Qualifiers: Congestive heart failure type: systolic Congestive heart failure chronicity : acute on chronic Qualified Code(s): I50.23 - Acute on chronic systolic ( congestive) heart failure - Discharge Medications Home Medications: Aspirin [Adult Low Dose Aspirin EC] 162 mg PO DAILY 10/30/15 [History] Atenolol [Tenormin] 50 mg PO BID 10/30/15 [History] Atorvastatin [Lipitor] 80 mg PO QPM 10/30/15 [History] Digoxin [Lanoxin] 0.25 mg PO DAILY 10/30/15 [History] Furosemide [Lasix] 20 mg PO Q48H 10/30/15 [History] Isosorbide MONOnitrate (24 HR) [Imdur] 15 mg PO DAILY 10/30/15 [History] Lisinopril [Zestril] 10 mg PO DAILY 10/30/15 [History] Metformin [Glucophage] 1,000 mg PO BID 10/30/15 [History] Primidone [Mysoline] 100 mg PO HS 10/30/15 [History] Terazosin HCl 6 mg PO HS 10/30/15 [History] Ferrous Gluconate 324 mg PO BID 09/10/16 [History] Insulin NPH, HUMAN [HumuLIN N] 74 unit SQ BID 09/10/16 [History] Allergies/Adverse Reactions: Allergies No Known Allergies Allergy (Verified 10/30/15 17:26) Procedures/tests Complete & Pending: Procedures Performed prior 72 hours Category Date Time Status ECG 12 lead ECG [ECG] Routine Y 09/13/16 09:10 Completed Date of admission: 09/11/16 10:53 [facility] care physician: [facility] Consults: 09/12/16 15:01 PT [Consult to Physical Therapy] [CONS] Routine Comment: Evaluate, develop and implement POC 09/12/16 15:02 Consult to Occupational Therapy [CONS] Routine Comment: Evaluate, develop and implement POC 09/12/16 16:49 Consult to [employer] [CONS] Routine Reason for SW Consult: placement to snf Discharging clinician: Ramon Lea Anticipated date of discharge: 09/14/16 - Patient Status Disposition: Transfer SNF Condition: Fair Functional capacity at discharge: uses cane/walker Overall status at discharge: patient is progressing back to baseline - Discharge Instructions Follow Up With: [facility] [Primary Care Provider] - - Diet and Activity Activity: as per physical therapy Diet: advance to your usual diet Interval History: Mr. Marley is a 81 year old male who presents to hospital with 2 day history of rectal bleeding. Denies previous history of this problem. He states that he began noticing large volume bright red blood in the toilet. Bleeding was not painful. Bowel movements were his normal caliber and consistency. Denies diarrhea, constipation, melena. Admits orthopnea, leg swelling x 1 week. Denies headache, dizziness, fever, chills, chest pain, dyspnea, dyspnea on exertion. Hospital course: Mr. Marley is a 81 year old male s/p polypectomy prior to admission and on plavix. hb was dropping consistently, was transfused 2 units of pr bc yesterday , today's hb 9.2. colonoscopy report noted, Colonoscopy revealed active bleeding in the ascending colon at previous polypectomy site. 3 clips were placed and hemostasis achieved. Recommend holding Plavix for one week. Continue with ilasix po. No plavix for 1 week. Patient was evaluated by PT, recommend SNF. Will discharge him to SNF. - Time Spent with Patient Total time spent providing and/or coordinating discharge services: Greater than 30 minutes - Constitutional Vitals: Temp Pulse Resp BP Pulse Ox 98 F 64 16 148/73 96 09/14/16 10:47 09/14/16 10:47 09/14/16 10:47 09/14/16 10:47 09/14/16 10:47 General appearance: Present: cooperative, A&O X 3, pleasant, obese, answers questions appropriately - Head Head exam: Present: atraumatic, normocephalic - Eye Eye exam: Present: PERRL, conjuntiva pink, sclera anicteric Pupils: Present: PERRL - Neck Neck exam general surgery: Present: supple, trachea midline. Absent: lymphadenopathy - Respiratory Respiratory exam: Present: CTAB. Absent: accessory muscle use, rales, rhonchi, wheezes - Cardiovascular Cardiovascular exam: Present: RRR, +S1, +S2. Absent: diastolic murmur, gallop, rubs, systolic murmur - GI/Abdominal GI/Abdominal exam: Present: normal bowel sounds, soft, no peritoneal signs. Absent: distended, tenderness - Extremities Exam Extremities exam: Present: warm, radial pulses palpable and symetrical. Absent : calf tenderness, cyanotic, pedal edema - Neurological Exam Neurological exam: Present: CN II-XII intact, oriented X3, no focal deficits. Absent: pronater drift, facial droop, speech deficit - Skin Skin exam: Present: dry, intact - VTE Documentation of Mechanical Device: Intermittent pneumatic compression device
--- NOTE | 2016-09-14 12:49 | Physician Discharge Referral ---
[facility]Care Referral Info Transfer To: SNF Provider in Charge after Transfer: PCP Institutional Level of Care: Skilled - Diagnosis (1) GI bleed Status: Acute (2) DVT prophylaxis Status: Acute (3) Elevated troponin Status: Acute (4) CHF (congestive heart failure) Status: Acute Prognosis: Fair Aware of Diagnosis: Patient Aware of Prognosis: Patient - Transfer Medications Home Medications: Aspirin [Adult Low Dose Aspirin EC] 162 mg PO DAILY 10/30/15 [History] Atenolol [Tenormin] 50 mg PO BID 10/30/15 [History] Atorvastatin [Lipitor] 80 mg PO QPM 10/30/15 [History] Digoxin [Lanoxin] 0.25 mg PO DAILY 10/30/15 [History] Furosemide [Lasix] 20 mg PO Q48H 10/30/15 [History] Isosorbide MONOnitrate (24 HR) [Imdur] 15 mg PO DAILY 10/30/15 [History] Lisinopril [Zestril] 10 mg PO DAILY 10/30/15 [History] Metformin [Glucophage] 1,000 mg PO BID 10/30/15 [History] Primidone [Mysoline] 100 mg PO HS 10/30/15 [History] Terazosin HCl 6 mg PO HS 10/30/15 [History] Ferrous Gluconate 324 mg PO BID 09/10/16 [History] Insulin NPH, HUMAN [HumuLIN N] 74 unit SQ BID 09/10/16 [History] Allergies/Adverse Reactions: Allergies No Known Allergies Allergy (Verified 10/30/15 17:26) - Respiratory Orders Oxygen / L per min (2 l/min prn) Smoking Cessation: Smoking cessation has been advised. For more information, call the [place] Tobacco Quit Line at 9-377-PJYQ-NOW. - Advance Directives Code Status: Full Code - Mobility Orders Other (As per PT) - Rehabiliation Orders Rehab Potential: Fair Rehab Orders: ROM Exercises, Evaluation for Physical Therapy, Evaluation for Occupational Therapy - Diet Orders Regular CERTIFICATION: I certify that the transfer of the above named patient to an Extended Care Facility is necessary for the continuing treatment of the diagnosis listed. The above information is true and accurate reflection of patient's current condition. Confidential - Redisclosure prohibited without a patient's written consent.
[2016-09-14] MEDS ORDERED: Lidocaine -MPF 2% 5 ML VIAL INFILT ONE (15:44)
[2016-09-14] MEDS ORDERED: *HR* Propofol 200 MG/20 ML VIAL IVP ONE (15:44)
== END 2016-09-14 15:45 | DRG 919 ==
LOC: 3NENU 16:51 → EMEROO 16:51 → 3NENU 19:22
PROVIDERS: ADMIT Internal Medicine; ATTEND Internal Medicine